=== PATIENT | male | born 1990 | race American Indian/Alaskan Native ===

== ENCOUNTER 2020-02-17 01:05 | Emergency (ER) | payer BC ==
[2020-02-17] MEDS ORDERED: ACETAMINOPHEN 325 MG TAB ONE (03:01)
[2020-02-17] MEDS ORDERED: ACETAMINOPHEN 325 MG TAB PO ONE (03:02)
--- NOTE | 2020-02-17 03:39 | XRay Report ---
LEFT FOOT, SINGLE VIEW INDICATION / CLINICAL INFORMATION: pain and swelling L foot; foreign object. COMPARISON: None available. FINDINGS: There is a 10 x 2 linear radiopaque foreign object in the soft tissues inferior to the calcaneus appr oximately 3-4 mm deep to the skin. Signer Name: Danna Bruce MD Signed: 02/17/2020 3:34 AM Workstation Name: [id number]
[2020-02-17] MEDS ORDERED: ONDANSETRON 4 MG ODT TAB PO ONE (05:17)
[2020-02-17] MEDS ORDERED: HYDROcodone/ACETAMINOPHEN 5-325 MG TAB PO ONE (05:17)
--- NOTE | 2020-02-17 07:52 | Emergency Department Report ---
ED Lower Extremity HPI - General Chief Complaint: Extremity Problem,Nontraumatic Stated Complaint: FOREIGN OBJECT IN LT FOOT Time Seen by Provider: 02/17/20 07:20 Source: patient Mode of arrival: Ambulatory Limitations: No Limitations - History of Present Illness Initial Comments: Patient is a 30-year-old male presents emergency room with complaints of a foreign body to the left heel that occurred around 12 AM. He states that he was walking inside the house and believes he stepped on something and feels like he has a foreign body sensation. He does not know what he stepped on. He was barefoot at the time. He states his tetanus immunization has been within the last 5 years. He is ambulatory but has discomfort. He denies any numbness or weakness. He denies any active bleeding. He denies any drainage. No past medical history. No allergies to medications. - Related Data Previous Rx's Medication Instructions Recorded Last Taken Type Acetaminophen/Codeine [Tylenol 1 tab PO Q6H PRN #10 tab 02/17/20 Unknown Rx /Codeine # 3 tab] Ibuprofen [Motrin 600 MG tab] 600 mg PO Q8H PRN #14 tablet 02/17/20 Unknown Rx Sulfamethoxazole/Trimethoprim 1 each PO BID 7 Days #14 tablet 02/17/20 Unknown Rx [Bactrim DS TAB] Allergies Allergy/AdvReac Type Severity Reaction Status Date / Time No Known Allergies Allergy Verified 02/17/20 03:05 ED Review of Systems ROS: Stated complaint: FOREIGN OBJECT IN LT FOOT Other details as noted in HPI Comment: All other systems reviewed and negative ED Past Medical Hx - Past Medical History Previous Medical History?: No - Surgical History Past Surgical History?: No - Social History Smoking Status: Never Smoker Substance Use Type: None - Medications Home Medications: Home Medications Medication Instructions Recorded Confirmed Last Taken Type Acetaminophen/Codeine [Tylenol 1 tab PO Q6H PRN #10 tab 02/17/20 Unknown Rx /Codeine # 3 tab] Ibuprofen [Motrin 600 MG tab] 600 mg PO Q8H PRN #14 tablet 02/17/20 Unknown Rx Sulfamethoxazole/Trimethoprim 1 each PO BID 7 Days #14 tablet 02/17/20 Unknown Rx [Bactrim DS TAB] ED Physical Exam - General Limitations: No Limitations General appearance: alert, in no apparent distress - Head Head exam: Present: atraumatic, normocephalic - Eye Eye exam: Present: normal appearance - ENT ENT exam: Present: mucous membranes moist - Respiratory Respiratory exam: Absent: respiratory distress, accessory muscle use - Back Exam Back exam: Present: other (3 mm curved puncture wound present to the left heel, no bleeding, no erythema, no drainage, no palpable foreign body, no necrosis, FROM of the LLE, neurovascularly intact) - Neurological Exam Neurological exam: Present: alert, oriented X3 - Psychiatric Psychiatric exam: Present: normal affect, normal mood - Skin Skin exam: Present: warm, dry ED Course Vital Signs 02/17/20 03:05 Respiratory 18 Rate - I & D Left Foot Type of Procedure: Simple Site: left heel Progress: Attempted foreign body removal Location left plantar heel Skin prepped with Betadine, sterile drapes applied, there is a 3 mm curved puncture wound, irrigated with saline, 3 cc of 1% lidocaine without epinephrine used as anesthetic, forceps and hemostat used to explore puncture wound, unable to identify foreign body, pt tolerated well, no complications, foreign body remains, no bleeding, sterile dressing applied ED Lower Extremity MDM - Radiology Data Radiology results: report reviewed, image reviewed LEFT FOOT, SINGLE VIEW INDICATION / CLINICAL INFORMATION: pain and swelling L foot; foreign object. COMPARISON: None available. FINDINGS: There is a 10 x 2 linear radiopaque foreign object in the soft tissues inferior to the calcaneus approximately 3-4 mm deep to the skin. Signer Name: Danna Bruce MD Signed: 02/17/2020 3:34 AM Workstation Name: [id number] Transcribed By: Dictated By: Danna Bruce MD Electronically Authenticated By: Danna Bruce MD Signed Date/Time: 02/17/20333 DD/ 1 TD/TT: LEFT FOOT 3 VIEWS INDICATION: attempted foreign body removal. COMPARISON: Earlier today at 0329 hours IMPRESSION: Previously described 10 x 2 mm linear density in the plantar soft tissues is still present. No osseous abnormality or joint pathology. Signer Name: Reinier Gonzalez Jr, MD Signed: 02/17/2020 8:40 AM Workstation Name: [id number] Transcribed By: RUBY Dictated By: REINIER GONZALEZ JR, MD Electronically Authenticated By: REINIER GONZALEZ JR, MD Signed Date/Time: 02/17/20839 DD/ 7 TD/TT: - Medical Decision Making Patient is a 30-year-old male presents emergency room with complaints of a foreign body to the left heel that occurred around 12 AM. He states that he was walking inside the house and believes he stepped on something and feels like he has a foreign body sensation. He does not know what he stepped on. He was barefoot at the time. He states his tetanus immunization has been within the last 5 years. He is ambulatory but has discomfort. He denies any numbness or weakness. He denies any active bleeding. He denies any drainage. No past medical history. No allergies to medications. on exam: 3 mm curved puncture wound present to the left heel, no bleeding, no erythema, no drainage, no palpable foreign body, no necrosis, FROM of the LLE, neurovascularly intact. XR left foot: There is a 10 x 2 linear radiopaque foreign object in the soft tissues inferior to the calcaneus approximately 3-4 mm deep to the skin. Foreign body removal attempted per procedure note, unable to identify foreign body. Discussed these findings with patient and advised to prevent further damage would not recommend to continue, he agrees with plan. the foreign body is very small and less likely to cause complications. Patient will be referred to general surgeon. Patient will be placed on antibiotics to prevent infection. Discussed wound care with patient. Patient given prescription for Tylenol with codeine, Bactrim, ibuprofen. Advised patient Please take medication as prescribed. Do not drive or operate machinery while taking pain medication. Please keep area clean, dry, covered. Wash with antibacterial soap and water and pat dry. No hot tub or pool. Follow-up with your primary care doctor. Follow-up with a general surgeon. Return to emergency room for any new or worsening symptoms. Critical care attestation.: If time is entered above; I have spent that time in minutes in the direct care of this critically ill patient, excluding procedure time. ED Disposition Clinical Impression: Foreign body of left heel Disposition: [id number] TO HOME OR SELFCARE Is pt being admited?: No Does the pt Need Aspirin: No Condition: Stable Instructions: Hand or Foot Foreign Body, Adult Additional Instructions: Please take medication as prescribed. Do not drive or operate machinery while taking pain medication. Please keep area clean, dry, covered. Wash with antibacterial soap and water and pat dry. No hot tub or pool. Follow-up with your primary care doctor. Follow-up with a general surgeon. Return to emergency room for any new or worsening symptoms. Prescriptions: Sulfamethoxazole/Trimethoprim [Bactrim DS TAB] 1 each PO BID 7 Days #14 tablet Ibuprofen [Motrin 600 MG tab] 600 mg PO Q8H PRN #14 tablet PRN Reason: Pain, Moderate (4-6) Acetaminophen/Codeine [Tylenol /Codeine # 3 tab] 1 tab PO Q6H PRN #10 tab PRN Reason: Pain , Severe (7-10) Referrals: PRIMARY CAREMD [Primary Care Provider] - 2-3 Days NATY HILL MD [Staff Physician] - 2-3 Days [facility] [Provider Group] - 2-3 Days Forms: Work/School Release Form(ED) Time of Disposition: 09:02 Print Language: MAORI
--- NOTE | 2020-02-17 08:44 | XRay Report ---
LEFT FOOT 3 VIEWS INDICATION: attempted foreign body removal. COMPARISON: Earlier today at 0329 hours IMPRESSION: Previously described 10 x 2 mm linear density in the plantar soft tissues is still prese nt. No osseous abnormality or joint pathology. Signer Name: Reinier Aceves Jr, MD Signed: 02/17/2020 8:40 AM Workstation Name: [id number]
[2020-02-17 09:03] VITALS: BP 119/57
[2020-02-17] MEDS ORDERED: oxyCODONE /ACETAMINOPHEN 5-325MG TAB PO ONE (09:09)
[2020-02-17] MEDS ORDERED: LIDOCAINE-MPF (1%) 10 MG/1 ML VIAL 5 ML INFILTRATI ONE (10:25)
== END 2020-02-17 09:54 | disposition home or self-care (01) ==
LOC: ED 01:05
DX: S91.342A Puncture wound with foreign body, left foot, initial encounter (principal); Z79.1 Long term (current) use of non-steroidal anti-inflammatories (NSAID); Z79.899 Other long term (current) drug therapy; W22.8XXA Striking against or struck by other objects, initial encounter; Y93.89 Activity, other specified; Y92.89 Other specified places as the place of occurrence of the external cause; Y99.8 Other external cause status
CPT/HCPCS: Q0162